=== PATIENT | female | born 1995 | race Caucasian/White ===

== ENCOUNTER 2017-07-03 10:27 | Emergency (ER) | payer BC, OTHER ==
[2017-07-03 11:12] LABS: #Basophils 0.1 thou/uL (0.0-0.2); #Eosinphils 0.2 thou/uL (0.0-0.7); #Lymphocytes 3.1 thou/uL (1.20-3.40); #Monocytes 0.6 thou/uL (0.11-0.59); #Neutrophils 3.8 thou/uL (1.40-6.50); %Basophils 0.8 % (0.0-1.0); %Eosinophils 2.2 % (0.0-10.0); %Monocytes 7.8 % (0.0-4.0); Hematocrit 37.3 % (36.0-47.0); Mean Platelet Volume 9.2 fL (7.4-10.4); Red Blood Cell (RBC) Count 4.32 mill/uL (4.00-5.20); White Blood Cell (WBC) Count 7.8 thou/uL (4.8-10.8)
[2017-07-03 11:24] LABS: ALT (SGPT) 9 U/L (8-55); AST (SGOT) 12 U/L (5-30); Alkaline Phosphatase 63 U/L (40-150); Anion Gap 13 mmol/L (10-20); BUN (Urea Nitrogen) 18 mg/dL (8.4-21.0); Bilirubin, Total 0.2 mg/dL (0.2-1.2); Calc. Creatinine Clearance 0 mL/min (70-130); Carbon Dioxide 25 mmol/L (22-29); Chloride 106 mmol/L (98-107); Estimated GFR-MDRD Greater than 90; Globulin 3.5 g/dL (2.4-3.5); Lipase 22 U/L (8-78); Protein, Total 7.5 g/dL (6.0-8.3)
[2017-07-03] MEDS ORDERED: Lidocaine Viscous Sol 2% 15 ml UD Cup ONE (11:44)
[2017-07-03] MEDS ORDERED: Mag-Al Plus 1200 MG/1200 MG/120 MG/30 ML UDCUP ONE (11:44)
--- NOTE | 2017-07-03 11:53 | CT ---
ABDOMEN CT WITHOUT CONTRAST: PELVIS CT WITHOUT CONTRAST: HISTORY: Left-sided abdominal pain. COMPARISON: None. TECHNIQUE: An abdomen and pelvis CT is performed without IV contrast. Coronal reformatted images are submitted for interpretation. FINDINGS: ABDOMEN: The lung bases are clear. The heart size is normal. No significant pericardial fluid. T he descending thoracic aorta and the abdominal aorta have a normal caliber. No periaortic fat stran ding. No gastrohepatic, retrocrural or periportal lymphadenopathy. No mesenteric mass, lymphadenopathy, free air, or free fluid. There are a few scattered, nonspecifi c, nonenlarged mesenteric lymph nodes, predominantly in the right lower quadrant. Limited evaluation of the solid organs due to lack of IV contrast. No solid organ abnormality. The gallbladder is unremarkable. Bilaterally, No hydronephrosis, nephrolithiasis, or perinephric fat stranding. Bilateral ureters wills ve a normal caliber. No hydroureter, periureteral fat stranding, or ureterolithiasis. Symmetric attenuation of the psoas muscles. Nonspecific left periaortic lymph node, mildly enlarged, measuring 1.6 x 1.1 cm. Limited evaluation of the alimentary canal due to lack of contrast. Gastric mucosa and duodenum are unremarkable. Multiple normal caliber small bowel loops. 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 Normal caliber appendix is i dentified. Scattered fecal material in a nondistended, nondilated colon. PELVIS: The uterus and adnexa are unremarkable. No pelvic mass, lymphadenopathy, free air, or free fluid. The urinary bladder is unremarkable. There are no calculi in the urinary bladder. No osteoblastic or osteolytic lesions. IMPRESSION: 1. Normal caliber appendix. 2. No evidence of nephrolithiasis or obstructive uropathy. POS: [facility]
== END 2017-07-03 12:25 | disposition home or self-care (01) ==
LOC: SCSER 10:27
DX: K29.70 Gastritis, unspecified, without bleeding (principal); F41.9 Anxiety disorder, unspecified
CPT/HCPCS: 74176; 80053; 83690; 84703; 85025

== ENCOUNTER 2018-04-28 07:07 | Inpatient (IN) | payer BC, OTHER ==
[2018-04-28 08:22] LABS: ALT (SGPT) 13 U/L (8-55); AST (SGOT) 15 U/L (5-34); Alkaline Phosphatase 63 U/L (40-150); Anion Gap 15 mmol/L (10-20); BUN (Urea Nitrogen) 6 mg/dL (7.0-18.7); Bilirubin, Total 0.7 mg/dL (0.2-1.2); CK (CPK) 39 U/L (29-168); Calc. Creatinine Clearance 0 mL/min (70-130); Calcium 9.1 mg/dL (7.8-10.44); Carbon Dioxide 20 mmol/L (22-29); Chloride 102 mmol/L (98-107); Estimated GFR-MDRD Greater than 90; Globulin 3.7 g/dL (2.4-3.5); Glucose 118 mg/dL (70-105); Potassium 3.5 mmol/L (3.5-5.1); Protein, Total 7.7 g/dL (6.0-8.3); Sodium 133 mmol/L (136-145)
[2018-04-28 08:23] LABS: #Basophils 0.1 thou/uL (0.0-0.2); #Lymphocytes 1.6 thou/uL (1.20-3.40); #Monocytes 2.2 thou/uL (0.11-0.59); #Neutrophils 14.4 thou/uL (1.40-6.50); %Basophils 0.8 % (0.0-1.0); %Eosinophils 0.1 % (0.0-10.0); %Lymphocytes 8.6 % (28.0-48.0); %Monocytes 12.2 % (0.0-4.0); %Neutrophils 78.4 % (31.0-61.0); Hemoglobin 12.5 g/dL (12.0-16.0); Mean Corpuscular HGB CONC 36.3 g/dL (32.0-36.0); Mean Corpuscular Hemoglobin 29.4 pg (25.0-35.0); Mean Corpuscular Volume 81.1 fL (78.0-98.0); Mean Platelet Volume 8.9 fL (7.4-10.4); Platelet Count 171 thou/uL (130-400); RBC Distribution Width 10.7 % (11.5-14.5); Red Blood Cell (RBC) Count 4.26 mill/uL (4.00-5.20); White Blood Cell (WBC) Count 18.3 thou/uL (4.8-10.8)
[2018-04-28] MEDS ORDERED: Sodium Chloride 0.9% 100 ML ONE (08:30)
[2018-04-28] MEDS ORDERED: Piperacillin/Tazobactam 4.5 GM VIAL ONE (08:30)
[2018-04-28] MEDS ORDERED: Acetaminophen 500 MG TAB ONE (08:30)
[2018-04-28 08:34] LABS: Pregnancy Test - Urine (BHCG) Negative (Negative); Pregu Control Background? CLEAR/WHITE (CLR/WHITE); Pregu Control Bar Appear? YES (CONTROL BAR)
[2018-04-28 08:35] LABS: Bilirubin Negative (Negative); Blood, Urine Trace (Negative); Clarity Cloudy (Clear); Glucose, Urine (Dipstick) Negative (Negative); Leukocyte Large (Negative); Nitrite Positive (Negative); Protein, Urine (Dipstick) 30 mg/dL (Neg-Trace); pH, Urine 7.5 (5.0-9.0)
[2018-04-28 08:38] LABS: Bacteria/HPF 4+ HPF (None Seen); WBC/HPF 21-50 HPF (0-3)
[2018-04-28 12:13] VITALS: BMI 38.5
[2018-04-28] MEDS ORDERED: Sodium Chloride 0.9% 1,000 ML IV SCH (12:13)
[2018-04-28] MEDS ORDERED: Acetaminophen 325 MG TAB PO PRN (12:13)
[2018-04-28] MEDS ORDERED: Ondansetron ODT 4 MG TAB SL PRN (12:13)
[2018-04-28] MEDS ORDERED: Ondansetron HCl/PF 4 MG/2 ML Vial IVP PRN ×2 (12:13→13:23)
[2018-04-28] MEDS ORDERED: VANCOMYCIN IVPB PRN (13:26)
[2018-04-28] MEDS ORDERED: traMADol HCl 50 MG TAB PO PRN (13:28)
[2018-04-28] MEDS ORDERED: Ketorolac Tromethamine 30 MG/ML VIAL IVP PRN (13:29)
[2018-04-28] MEDS ORDERED: NS 0.9% w/ 20 MEQ KCL 1,000 ML/1,000 ML BAG IV SCH (13:45)
[2018-04-28] MEDS: Piperacillin/Tazobactam 3.375 GM in Sodium Chloride 0.9% 100 ML IVPB SCH ×2 (14:05→21:01)
[2018-04-28] MEDS ORDERED: Piperacillin/Tazobactam 4.5 GM in Sodium Chloride 0.9% 100 ML IVPB SCH (14:30)
[2018-04-28] MEDS: Acetaminophen 500 MG TAB PO PRN ×2 (17:33→23:47)
--- NOTE | 2018-04-28 18:01 | HP ---
DATE OF ADMISSION: 04/28/2018 CHIEF COMPLAINT: Kidney pain. HISTORY OF PRESENT ILLNESS: This is a 22-year-old female with a history of migraines, who presents to the emergency room complaining of kidney, stomach and chest pain. The patient reports the onset approximately 3 days ago with progressive worsening. She thought it was the flu, however, symptoms were getting worse and today her temperature was up to 103, for which she presented to the emergency room. She describes the kidney pain as intermittent and stabbing/throbbing quality with the left side worse than the right, It occurs for about 2-3 minutes, resolves for about 30 minutes. There are no precipitating or relieving factors. The stomach pain she describes is constant , the middle of her abdomen and a pressure sensation on the left as well as pain on the right that is worse with lying down. For her chest symptoms, she states pain when she takes a deep breath that is dull and throbbing and also intermittent. The patient denies any prior history of similar symptoms, reports her last UTI was around age 15 and denies any dysuria. She has been using Tylenol 500 mg 2- 3 times per day over the past 3 days. There has been associated nausea and vomiting also over the past 3 days, as well as poor appetite and PO intake. She has noted her urine is brown and cloudy; however, no burning with urination. Family report her blood pressure today was in the 70s/30s which is lower than normal for her. In the emergency room, initial blood pressure was 75/63, patient diagnosed with pyelonephritis and treated with 30 mL per kilogram of normal saline, Zosyn 4.5 g , 1000 mg of acetaminophen, 20 mg/kg of vancomycin, started on maintenance fluids with normal saline and Hospitalist called for admission. ALLERGIES TO MEDICATIONS: TOPICAL DESITIN and TAPE ADHERENT such as bandages. MEDICATIONS: None. PAST MEDICAL HISTORY: 1. Migraines. 2. Urinary tract infection with the last one around age 15. PAST SURGICAL HISTORY: Some lymph nodes from her neck. SOCIAL HISTORY: The patient denies any alcohol or tobacco use. She reports her surrogate decision maker is her grandmother Rick. Last menstrual period 04/19, she reports is normal and denies any sexual activity. FAMILY HISTORY: Negative for any problems. REVIEW OF SYSTEMS: Positive for nausea, vomiting, change in urine, as well as a migraine in the occipital area and some light sensitivity. All remaining review of systems are negative. PHYSICAL EXAMINATION: VITAL SIGNS: Blood pressure 99/67, temperature 98.6, pulse 95, respirations 16 , saturations 100% on room air. GENERAL: Awake, alert, responsive. Appears uncomfortable, but not in acute distress. HEENT: Pupils equal, round and reactive to light. Oral mucosa pink and moist. NECK: Supple, nontender. LYMPHATICS: No palpable cervical or supraclavicular lymphadenopathy. LUNGS: Clear to auscultation bilaterally. No audible wheezing, rhonchi or rales. HEART: Normal S1, S2, regular rate and rhythm, no audible murmurs. ABDOMEN: Soft with present bowel sounds. Tenderness to palpation throughout the mid abdomen. No rebound or guarding and no palpable abnormalities. EXTREMITIES: No clubbing, cyanosis or edema. VASCULAR: 2+ dorsalis pedis pulses. NEUROLOGIC: No focal deficits. PSYCH: She is euthymic, linear, logical, goal-directed thought process. LABORATORY DATA: Today, CBC 18.3, 12.5, 34.5, 171,000 with 78% neutrophils, 9% lymphocytes. Lactate 1.0 Renal panel 133, 3.5, 102, 20, 6, 0.76, 118. LFTs are normal. Urinalysis shows present protein, ketones, positive nitrite, large leukocyte esterase, 4-6 red blood cells, 21-50 white blood cells. Urine test negative. IMPRESSION: 1. Sepsis secondary to pyelonephritis. 2. Migraine headache associated with above. PLAN: 1. Admission to the hospital. 2. Continuing antibiotics with request to pharmacy to dose the vancomycin and will change dosing for the Zosyn to 3.375 g q.6 hours. 3. IV fluid hydration. We will continue this, follow her blood and urine cultures, and manage pain with both oral and IV options. Manage nausea as well. 4. Anticipated her length of stay is at least 2 midnights awaiting the urine and blood culture. 5. Obtain a renal ultrasound to evaluate for obstruction or other abnormality that may be complicating current clinical picture. 6. Deep venous thrombosis prophylaxis. The patient is ambulatory. We will also use pneumatic compression devices. 7. GI prophylaxis not indicated. 8. Code status is full and surrogate decision maker is her grandmother. The patient is at high risk given current presentation. I reviewed the plan of care with the patient and her grandmother. No questions or further needs at end of evaluation. CHRISTI
--- NOTE | 2018-04-28 19:21 | ULT ---
RENAL ULTRASOUND: 04/28/18 HISTORY: Fever, bilateral flank pain. Real time imaging of the right and left kidneys were performed. the right kidney measures 11.2 and th e left kidney 11.8 cm in size. No signs of cysts, mass or obstruction. The bladder region appears unr emarkable. IMPRESSION: Unremarkable renal ultrasound. POS: [facility]
[2018-04-28] MEDS: NS 0.9% w/ 20 MEQ KCL 1,000 ML/1,000 ML BAG IV SCH (19:39)
[2018-04-28] MEDS ORDERED: Vancomycin HCl 1.5 GM in Sodium Chloride 0.9% 250 ML 300 ML IVPB SCH (21:00)
[2018-04-29] MEDS: Piperacillin/Tazobactam 3.375 GM in Sodium Chloride 0.9% 100 ML IVPB SCH ×2 (03:07→07:37)
[2018-04-29 06:46] LABS: #Basophils 0.1 thou/uL (0.0-0.2); #Eosinphils 0.1 thou/uL (0.0-0.7); #Lymphocytes 2.4 thou/uL (1.20-3.40); #Monocytes 1.6 thou/uL (0.11-0.59); #Neutrophils 8.1 thou/uL (1.40-6.50); %Basophils 0.4 % (0.0-1.0); %Eosinophils 1.1 % (0.0-10.0); %Lymphocytes 19.6 % (28.0-48.0); Hemoglobin 11.1 g/dL (12.0-16.0); Mean Corpuscular HGB CONC 33.6 g/dL (32.0-36.0); Mean Corpuscular Hemoglobin 29.8 pg (25.0-35.0); Mean Corpuscular Volume 88.7 fL (78.0-98.0); Mean Platelet Volume 8.8 fL (7.4-10.4); Platelet Count 151 thou/uL (130-400); RBC Distribution Width 11.6 % (11.5-14.5); Red Blood Cell (RBC) Count 3.73 mill/uL (4.00-5.20); White Blood Cell (WBC) Count 12.3 thou/uL (4.8-10.8)
[2018-04-29 06:50] LABS: Anion Gap 9 mmol/L (10-20); BUN (Urea Nitrogen) 5 mg/dL (7.0-18.7); Calc. Creatinine Clearance 223 mL/min (70-130); Calcium 8.3 mg/dL (7.8-10.44); Carbon Dioxide 24 mmol/L (22-29); Chloride 109 mmol/L (98-107); Estimated GFR-MDRD Greater than 90; Glucose 99 mg/dL (70-105); Potassium 3.5 mmol/L (3.5-5.1); Sodium 138 mmol/L (136-145)
[2018-04-29] MEDS: Acetaminophen 500 MG TAB PO PRN ×2 (07:37→14:55)
[2018-04-29] MEDS: NS 0.9% w/ 20 MEQ KCL 1,000 ML/1,000 ML BAG IV SCH (07:38)
[2018-04-29 09:49] LABS: Vancomycin, Trough 38.1 ug/mL
[2018-04-29] MEDS ORDERED: cefTRIAXone Sodium 1 MG in Syringe 0 ML IVPB SCH (11:15)
[2018-04-29] MEDS: cefTRIAXone\\ROCEPHIN 1 GM in Sodium Chloride 0.9% 100 ML IVPB SCH (12:03)
--- NOTE | 2018-04-29 13:30 | PDOC.PN ---
- Subjective Encounter Start Date: 04/29/18 Encounter Start Time: 10:45 Subjective: pt up in bed no complains - Objective Resuscitation Status: Resuscitation Status FULL:Full Resuscitation Vital Signs & Weight: Vital Signs (12 hours) Temp Pulse Resp BP Pulse Ox 04/29/18 10:55 98.4 F 78 18 91/60 93 L 04/29/18 08:00 99.2 F 83 20 04/29/18 07:12 99.2 F 83 20 105/71 99 04/29/18 04:59 98.5 F 74 20 101/68 96 Weight Weight 245 lb 14.4 oz I&O: 04/28/18 04/29/18 04/30/18 06:59 06:59 06:59 Intake Total 3310 Balance 3310 Result Diagrams: 04/29/18 06:04 04/29/18 06:04 Phys Exam - Physical Examination HEENT: PERRLA, moist MMs, sclera anicteric, TM's clear, oral pharynx no lesions , 2+ tonsils Neck: no nodes, no JVD, supple, full ROM Respiratory: no wheezing, no rales, no rhonchi, wheezing present, clear to auscultation bilateral Cardiovascular: RRR, no significant murmur, no rub, gallop, irregular Gastrointestinal: soft mild flank pain Dx/Plan (1) Pyelonephritis Code(s): N12 - TUBULO-INTERSTITIAL NEPHRITIS, NOT SPCF ACUTE OR CHRONIC Status: Acute (2) Sepsis Code(s): A41.9 - SEPSIS, UNSPECIFIED ORGANISM Status: Acute - Plan urine cx indicated ecoli will change abx to ceftriaxone -: will continue iv fluids. * . Review of Systems - Review of Systems ENT: negative: Ear Pain, Ear Discharge, Nose Pain, Nose Discharge, Nose Congestion, Mouth Pain, Mouth Swelling, Throat Pain, Throat Swelling, Other Respiratory: negative: Cough, Dry, Shortness of Breath, Hemoptysis, SOB with Excertion, Pleuritic Pain, Sputum, Wheezing Cardiovascular: negative: chest pain, palpitations, orthopnea, paroxysmal nocturnal dyspnea, edema, light headedness, other - Medications/Allergies Allergies/Adverse Reactions: Allergies Allergy/AdvReac Type Severity Reaction Status Date / Time adhesive tape Allergy Verified 04/28/18 12:12 cod liver oil [From Desitin] Allergy Verified 04/28/18 12:12 zinc oxide [From Desitin] Allergy Verified 04/28/18 12:12 Medications: Current Medications Acetaminophen (Tylenol) 1,000 mg PO Q6H PRN PRN Reason: Moderate to Severe Pain (6-10) Last Admin: 04/29/18 07:37 Dose: 1,000 mg Potassium Chloride/Sodium Chloride (Ns 0.9% W/ 20 Meq Kcl) 1,000 ml in 1,000 mls @ 60 mls/hr IV .[id number] MONTSE Last Admin: 04/29/18 07:38 Dose: 1,000 mls Ceftriaxone Sodium 1 gm/ (Sodium Chloride) 100 mls @ 200 mls/hr IVPB 1200 MONTSE Last Admin: 04/29/18 12:03 Dose: 100 mls Ketorolac Tromethamine (Toradol) 15 mg IVP Q6H PRN PRN Reason: Mild Pain (1-3) Stop: 05/03/18 13:30 Miscellaneous Medication (Pharmacy To Dose) 1 each IVPB PRN PRN PRN Reason: Pharmacy to dose Ondansetron HCl (Zofran) 4 mg IVP Q6H PRN PRN Reason: Nausea/Vomiting Last Admin: 04/28/18 23:46 Dose: 4 mg Sodium Chloride (Flush - Normal Saline) 10 ml IVF Q12HR MONTSE Last Admin: 04/29/18 07:38 Dose: 10 ml Sodium Chloride (Flush - Normal Saline) 10 ml IVF PRN PRN PRN Reason: Saline Flush Tramadol HCl (Ultram) 50 mg PO Q6H PRN PRN Reason: Moderate Pain (4-6)
[2018-04-29 21:30] LABS: Vancomycin, Random 5.9 ug/mL (See Comment)
[2018-04-29] MEDS ORDERED: Vancomycin HCl 1.75 GM in Sodium Chloride 0.9% 500 ML IVPB SCH (22:00)
[2018-04-29] MEDS ORDERED: Vancomycin HCl 1 GM in Premix Bag 1 BAG IVPB SCH (22:00)
[2018-04-30] MEDS: NS 0.9% w/ 20 MEQ KCL 1,000 ML/1,000 ML BAG IV SCH (04:47)
[2018-04-30 06:24] LABS: Anion Gap 12 mmol/L (10-20); BUN (Urea Nitrogen) 4 mg/dL (7.0-18.7); Calc. Creatinine Clearance 229 mL/min (70-130); Calcium 8.7 mg/dL (7.8-10.44); Carbon Dioxide 24 mmol/L (22-29); Chloride 106 mmol/L (98-107); Estimated GFR-MDRD Greater than 90; Glucose 101 mg/dL (70-105); Potassium 3.5 mmol/L (3.5-5.1); Sodium 138 mmol/L (136-145)
[2018-04-30 07:06] LABS: Mean Corpuscular HGB CONC 34.8 g/dL (32.0-36.0); Mean Corpuscular Hemoglobin 30.7 pg (25.0-35.0); Mean Corpuscular Volume 88.2 fL (78.0-98.0); Mean Platelet Volume 8.3 fL (7.4-10.4); Platelet Count 171 thou/uL (130-400); RBC Distribution Width 11.7 % (11.5-14.5); Red Blood Cell (RBC) Count 3.59 mill/uL (4.00-5.20); White Blood Cell (WBC) Count 8.2 thou/uL (4.8-10.8)
[2018-04-30 08:05] LABS: Band 15 % (5-11); Lymphocytes 31 % (28-48); MDiff Complete? YES; Monocytes 17 % (0-4); Neutrophil 37 % (31-61); RBC Morphology Normal
[2018-04-30 10:20] LABS: Vancomycin, Random 13.6 ug/mL (See Comment)
[2018-04-30] MEDS: cefTRIAXone\\ROCEPHIN 1 GM in Sodium Chloride 0.9% 100 ML IVPB SCH (12:00)
[2018-04-30 16:39] VITALS: BP 123/84; TEMP 97.8
== END 2018-04-30 16:40 | disposition home or self-care (01) | DRG 872 ==
LOC: SCSER 07:07 → ERHOLD 09:30 → T4-A 11:28
PROVIDERS: ADMIT Internal Medicine Infectious Disease; ATTEND Internal Medicine Infectious Disease
DX: A41.9 Sepsis, unspecified organism (principal); N12 Tubulo-interstitial nephritis, not specified as acute or chronic; G43.909 Migraine, unspecified, not intractable, without status migrainosus
CPT/HCPCS: 36415; 76770; 80048; 80053; 80202; 81003; 81015; 81025; 82550; 83605; 85025; 87040; 87077; 87086; 87186; 94760; 96360; 96361; 96365; 96366; 96367; A4216; J0696; J1885; J2405; J2543; J3370; J7050

== ENCOUNTER 2020-03-19 11:17 | Emergency (ER) | payer BC | END 2020-03-19 13:13 | disposition home or self-care (01) | LOC: ERS 11:17 | DX: R11.2 Nausea with vomiting, unspecified (principal) | CPT/HCPCS: 99281 ==